=== PATIENT | male | born 1985 | race Caucasian/White ===

== ENCOUNTER 2020-04-24 07:54 | Outpatient (CLI) | payer OTHER, SELFPAY | END 2020-04-24 07:55 | disposition home or self-care (01) | LOC: ANHCOVIDVC 07:54 | PROVIDERS: PCP Family Medicine | DX: Z23 Encounter for immunization (principal) | CPT/HCPCS: 0001A; 91300 ==

== ENCOUNTER 2020-05-15 08:04 | Outpatient (CLI) | payer OTHER, SELFPAY | END 2020-05-15 08:05 | disposition home or self-care (01) | PROVIDERS: PCP Family Medicine | DX: Z23 Encounter for immunization (principal) | CPT/HCPCS: 0002A; 91300 ==

== ENCOUNTER 2020-05-16 22:39 | Emergency (ER) | payer OTHER, SELFPAY ==
--- NOTE | ~2020-05-16 | XR_ITS ---
EXAMINATION: XR chest 2V EXAM DATE: 05/16/2020 23:40 INDICATION: Chest pain and vomiting. TECHNIQUE: Frontal and lateral projections of the chest obtained and reviewed. Comparison is made to prior examination from 11/01/2017. FINDINGS: The lungs are clear. There are no pleural effusions. The cardiomediastinal silhouette is within normal limits. There is no pneumothorax suspected. The bones and soft tissues are unremarkab le. IMPRESSION: Normal chest x-ray exam. Reviewed, dictated and finalized at location A. IMPRESSION: Normal chest x-ray exam.
--- NOTE | ~2020-05-16 | CT_ITS ---
EXAMINATION: CT soft tissue neck w con EXAM DATE: 05/17/2020 01:34 INDICATION: Feels like something stuck in throat. TECHNIQUE: Spiral CT of the neck was performed following intravenous injection of 75 mL Omnipaque 350 . Axial, coronal and sagittal images were reviewed. The dose-length product (DLP) for this examinat ion was 615.02 mGy-cm. The exposure was tailored according to patient size (auto mA exposure control ), and iterative reconstruction (ASIR) was used as additional dose reduction technique. There is no prior study for comparison. FINDINGS: No radiopaque foreign bodies identified. The thyroid gland is unremarkable. The submand ibular and parotid glands are symmetric. There is no cervical lymphadenopathy. There are no masses identified. The superior mediastinum is unremarkable. The airway is unremarkable. Parapharyng eal and pre-glottic fat planes are preserved. The opacified vasculature is patent. Small amount of residual thymic tissue. The orbits are unremarkable. There is mild bilateral ethmoid and maxillary sinus mucoperiosteal thickening. No sinus air-fluid levels. The mastoid air cells are well aerated. Lung apices are clear to the pete. Unremarkable cervical spine. IMPRESSION: Mild mucoperiosteal thickening ethmoid and maxillary sinuses. Otherwise unremarkable exam . Reviewed, dictated and finalized at location A. IMPRESSION: Mild mucoperiosteal thickening ethmoid and maxillary sinuses. Other leblanc unremarkable exam.
[2020-05-16 22:41] VITALS: BP 133/107; PULSE 91; RESP 16; TEMP 36.1; O2SAT 97
--- NOTE | 2020-05-16 22:54 | ED.GENADULT ---
HPI - General Adult General Chief complaint: Nausea/Vomiting/Diarrhea Stated complaint: N/V SOMETHING STCK IN THROAT Time Seen by Provider: 05/16/20 22:51 Source: RN notes reviewed History of Present Illness HPI narrative: Patient presents to emergency department from home for nausea vomiting. Patient states he has been having nausea vomiting since waking up this morning. States that this evening he had been feeling little better and ate some general Karthik chicken he states he was initially will swallow it but then vomited up shortly afterwards since that time is had pain in his throat he states it hurts to swallow he denies any fevers or chills shortness of breath or any other symptoms he denies any abdominal pain but notes continued nausea. Patient states he is able to swallow it is just painful to swallow Related Data Allergies Allergy/AdvReac Type Severity Reaction Status Date / Time No Known Allergies Allergy Verified 05/16/20 22:47 Review of Systems Review of Systems: Narrative: Gen.: Denies fevers or chills ENT: Denies congestion Respiratory: Denies shortness of breath or cough CV: Denies chest pain or palpitations GI: See HPI denies burning, urgency, frequency or hematuria Musculoskeletal: Denies back pain or muscle pain Neuro: Denies numbness, tingling, weakness or focal weakness Skin: Denies rash Except as documented, all other systems reviewed and negative [facility] Past Medical History Medical History Anxiety Diarrhea Surgical History Surgical History History of wisdom tooth extraction Social History Social History Smoking status: Current every day smoker Second hand tobacco smoke exposure: Yes Alcohol intake: current Exam Narrative: Exam Narrative: APPEARANCE: No acute distress, nontoxic, resting in bed EYES: EOMI HEENT: Normocephalic, atraumatic, OMM airway patent, no erythema or exudate posterior pharynx, tolerating own secretions RESPIRATORY: No respiratory distress Clear to auscultation bilaterally with no rhonchi wheezing or rales. CARDIOVASCULAR: Regular rate and rhythm without murmurs rubs or gallops. ABDOMINAL: Soft, nontender, nondistended, no rebound or guarding MUSCULOSKELETAl: Moves all extremities. No clubbing, cyanosis or edema. NEURO: Awake and alert. Following commands, speech normal, no focal deficits SKIN:: Warm, dry. No rashes lesions or abrasions PSYCHIATRIC: Normal affect/mood, Course Course Emergency Course: Following lab results evaluate I reevaluated the patient no abdominal tenderness specifically no tenderness in the right upper quadrant Patient able to eat and drink in ED with no difficulty ready for discharge Discussed with Dr. Story presentation work-up discussed elevated LFTs will follow as an outpatient Discussed with patient results of workup and diagnosis. Discussed need for follow-up with primary care, proper use of medication, and reasons to return to the emergency department. Patient understands and agrees to current treatment plan Vital Signs Vital signs: Vital Signs Temperature 97.0 F L 05/16/20 22:41 Pulse Rate 91 05/16/20 22:41 Respiratory Rate 16 05/16/20 22:41 Blood Pressure 133/107 H 05/16/20 22:41 Pulse Oximetry 97 05/16/20 22:41 Temperature 97.9 F 05/17/20 00:42 Pulse Rate 87 05/17/20 03:00 Respiratory Rate 16 05/17/20 03:00 Blood Pressure 143/77 H 05/17/20 03:00 Pulse Oximetry 98 05/17/20 03:00 Medical Decision Making Vital Signs Vital Signs: Vital Signs Temperature 97.0 F L 05/16/20 22:41 Pulse Rate 91 05/16/20 22:41 Respiratory Rate 16 05/16/20 22:41 Blood Pressure 133/107 H 05/16/20 22:41 Pulse Oximetry 97 05/16/20 22:41 Temperature 97.9 F 05/17/20 00:42 Pulse Rate 87 05/17/20 03:00 Respiratory Rate 16
[2020-05-16] MEDS: SODIUM CHLORIDE 0.9% IV 1,000 ML 999 ML IV CONT (23:18)
[2020-05-16] MEDS: ONDANSETRON INJ 4 MG/2 ML VIAL IV PUSH (23:19)
[2020-05-16] MEDS: PANTOPRAZOLE SODIUM IV 40 MG VIAL IV PUSH (23:20)
[2020-05-16 23:37] LABS: Basophils Absolute Auto 0.1 K/mm3 (0.0-0.1); Basophils Percent Auto 0.6 % (0.2-1.2); Eosinophils Absolute Auto 0.2 K/mm3 (0-0.3); Eosinophils Percent Auto 2.9 % (0-4.4); Hematocrit 50.5 % (42.0-52.0); Hemoglobin 18.3 g/dL (14.0-18.0); Immature Granulocyte Absolute 0.04 K/mm3 (0.00-0.031); Immature Granulocyte Percent A 0.5 % (0-0.5); Lymphocytes Absolute Auto 1.39 K/mm3 (0.9-3.2); Lymphocytes Percent Auto 16.6 % (18.3-44.2); Mean Corpuscular HGB Conc 36.2 g/dl (32-36); Mean Corpuscular Hemoglobin 33.8 pg (26-34); Mean Corpuscular Volume 93.3 fl (80-100); Mean Platelet Volume 10.7 fl (7.4-10.4); Monocytes Absolute Auto 0.9 K/mm3 (0.1-0.6); Monocytes Percent Auto 10.5 % (2.6-8.5); Neutrophils Absolute Auto 5.8 K/mm3 (1.3-6.7); Neutrophils Percent Auto 68.9 % (45.5-73.1); Platelet Count Result 232 k/mm3 (150-375); Red Blood Count 5.41 M/mm3 (4.6-6.20); Red Cell Distribution Width 11.4 % (11.5-14.5); White Blood Count 8.4 K/mm3 (4.5-10.0)
[2020-05-16 23:47] LABS: Add Urine Microscopic? YES; Appearance Urine Cloudy (Clear); Bacteria Urine Trace /hpf; Bilirubin Urine Negative (Negative); Blood Urine Negative (Negative); Color Urine Amber (Yellow); Glucose Urine UA Negative (Negative); Ketones Urine Trace mg/dL (Negative); Leukocyte Esterase Ur Negative LEU/UL (Negative); Mucus Urine Heavy /lpf; Nitrate Urine Negative (Negative); Protein Urine 2+ mg/dL (Negative); RBC Urine 0-2 /hpf (0-2); Specific Grav Ur 1.029 (1.001-1.035); Squamous Epithelial Cell Urine Rare /hpf (Few); WBC Urine 0-3 /hpf
[2020-05-16 23:58] LABS: Alanine Aminotransferase 124 U/L (4-50); Albumin Level 4.7 g/dL (3.5-5.1); Alkaline Phosphatase 96 U/L (38-126); Anion Gap 9 mmol/L (8-16); Aspartate Amino Transferase 131 U/L (17-59); Bilirubin,Total 1.2 mg/dL (0.2-1.3); Blood Urea Nitrogen 13 mg/dL (9-20); Calcium 9.3 mg/dL (8.4-10.2); Carbon Dioxide 35 mmol/L (22-30); Chloride 95 mmol/L (98-107); Estimated CRCL calculation 129 ml/min; Estimated Glomerular Filt Rate > 60; Glucose 133 mg/dL (75-110); Lipase 134 U/L (23-300); Potassium 3.6 mmol/L (3.4-5.0); Sodium 139 mmol/L (137-145)
[2020-05-17 00:42] VITALS: BP 132/71; PULSE 97; RESP 20; TEMP 36.6; O2SAT 97
[2020-05-17] MEDS: ACETAMINOPHEN 500 MG TABLET 1000 MG PO (02:57)
[2020-05-17 03:00] VITALS: BP 143/77; PULSE 87; RESP 16; O2SAT 98
[2020-05-17 03:51] VITALS: BP 110/65; PULSE 90; RESP 16; O2SAT 97
== END 2020-05-17 03:52 | disposition home or self-care (01) ==
PROVIDERS: Emergency Provider Emergency Medicine; PCP Family Medicine
DX: R11.2 Nausea with vomiting, unspecified (principal); R13.10 Dysphagia, unspecified; F17.200 Nicotine dependence, unspecified, uncomplicated
CPT/HCPCS: 36415; 70491; 71046; 80053; 81001; 83690; 85025; 96361; 96374; 96375; 99284; A9270; C9113; J2405; J7030; Q9967

== ENCOUNTER 2020-05-19 11:05 | Outpatient (CLI) | payer OTHER, SELFPAY ==
[2020-05-19 12:07] LABS: Hematocrit 47.2 % (42.0-52.0); Hemoglobin 16.4 g/dL (14.0-18.0); Mean Corpuscular HGB Conc 34.7 g/dl (32-36); Mean Corpuscular Hemoglobin 33.3 pg (26-34); Mean Corpuscular Volume 95.7 fl (80-100); Mean Platelet Volume 10.6 fl (7.4-10.4); Platelet Count Result 196 k/mm3 (150-375); Red Blood Count 4.93 M/mm3 (4.6-6.20); Red Cell Distribution Width 11.6 % (11.5-14.5); White Blood Count 5.4 K/mm3 (4.5-10.0)
[2020-05-19 12:22] LABS: Alanine Aminotransferase 143 U/L (4-50); Albumin Level 4.2 g/dL (3.5-5.1); Alkaline Phosphatase 73 U/L (38-126); Anion Gap 5 mmol/L (8-16); Aspartate Amino Transferase 142 U/L (17-59); Bilirubin,Total 0.7 mg/dL (0.2-1.3); Blood Urea Nitrogen 11 mg/dL (9-20); Calcium 8.6 mg/dL (8.4-10.2); Carbon Dioxide 33 mmol/L (22-30); Chloride 102 mmol/L (98-107); Cholesterol 130 mg/dL (0-200); Estimated Glomerular Filt Rate > 60; Glucose 81 mg/dL (75-110); HDL Direct 73 mg/dL; Potassium 4.7 mmol/L (3.4-5.0); Sodium 140 mmol/L (137-145); Triglycerides 50 mg/dL (<150)
[2020-05-19 12:32] LABS: Erythrocyte Sedimentation Rate 4 mm/hr (0-20)
[2020-05-19 12:33] LABS: LDL Cholesterol Direct 51 mg/dL
[2020-05-19 13:39] LABS: Free T4 Free Thyroxine Reflex 0.67 ng/dL (0.78-2.19)
== END 2020-05-19 11:06 | disposition home or self-care (01) ==
PROVIDERS: PCP Family Medicine; Visit Provider Nurse Practitioner Family
DX: R19.7 Diarrhea, unspecified (principal); F41.9 Anxiety disorder, unspecified; Z13.220 Encounter for screening for lipoid disorders; Z00.00 Encounter for general adult medical examination without abnormal findings
CPT/HCPCS: 36415; 80053; 80061; 84439; 84443; 85027; 85652; 86140

== ENCOUNTER 2020-05-20 14:13 | Outpatient (CLI) | payer OTHER, SELFPAY | END 2020-05-20 14:14 | disposition home or self-care (01) | PROVIDERS: PCP Family Medicine; Visit Provider Nurse Practitioner Family | DX: R19.7 Diarrhea, unspecified (principal) | CPT/HCPCS: 87045; 87046; 87177; 87209; 87427 ==

== ENCOUNTER → 2020-06-09 01:46 | Outpatient (CLI) | payer OTHER, SELFPAY ==
[2020-06-09 19:24] LABS: SARS-CoV-2 RNA PCR Negative
== END ==
PROVIDERS: PCP Family Medicine; Visit Provider Internal Medicine Gastroenterology
DX: Z01.812 Encounter for preprocedural laboratory examination (principal); Z20.822 Contact with and (suspected) exposure to COVID-19
CPT/HCPCS: C9803; U0003; U0005

== ENCOUNTER 2020-06-12 00:49 | Day surgery (SDC) | payer OTHER, SELFPAY ==
[2020-06-02 13:54] VITALS: BMI 24.3
[2020-06-12 10:05] VITALS: BP 125/80; PULSE 87; RESP 18; TEMP 36.3; O2SAT 98; BMI 24.3
[2020-06-12] MEDS: LACTATED RINGERS 1,000 ML 150 ML IV CONT (10:16)
--- NOTE | 2020-06-12 10:16 | WPDANESEPPF ---
Anes - Initial Pre Proc Eval Procedure: Operation Date: 06/12/20 11:15 Proposed Procedures p Esophagogastroduodenoscopy & Colonoscopy - Macario Nagy MD Date/Time: 06/12/20 10:16 Surgeon: Macario Nagy MD Pre Op Diagnosis: heartburn, diarrhea, melena Patient Data Age: 34 Gender: M Height: 6 ft 5 in Weight: 93.3 kg Last Vital Signs Temp 36.3 C L 06/12/20 10:05 Pulse 87 06/12/20 10:05 Resp 18 06/12/20 10:05 BP 125/80 06/12/20 10:05 Pulse Ox 98 06/12/20 10:05 Allergies Allergy/AdvReac Type Severity Reaction Status Date / Time No Known Allergies Allergy Verified 06/12/20 10:03 Home Medications Medication Instructions Recorded Confirmed Type alprazolam 0.5 mg tablet 0.5 mg PO BID PRN #30 tablet 05/25/20 06/12/20 Rx pantoprazole [Protonix] 40 mg PO DAILY PRN 06/02/20 06/12/20 History ondansetron 4 mg PO TID PRN 06/12/20 06/12/20 History Patient hx anesthesia problems: none Family hx anesthesia problems: none PMFSH Past Medical History Medical History Anxiety Diarrhea Surgical History Surgical History History of wisdom tooth extraction Social History Social History Smoking status: Current every day smoker Tobacco type: cigarettes Second hand tobacco smoke exposure: Yes Alcohol intake: current Drinks per week: 15 Substance use: current Substance use type: marijuana Other substance usage details: occassionally Living arrangements: with family Gender identity (if verbalized by the patient): Male Spiritual care concerns: No Anes - Eval Final PreProcedure Day of Procedure 06/12/20 10:16 Patient weight: normal Heart: regular rate and rhythm Lungs: clear to auscultation Airway: Mallampati scale class II Neurological: alert and oriented Last oral intake: >/= 8 hours ASA classification: III Emergent: no Anesthetic plan: proceed Anesthesia type and monitoring: general GIVS and standard monitoring Informed Consent: The patient's anesthetic plan and its attendant risks and benefits were discussed with the patient/family/POA. Questions were solicited and answers provided to the satisfaction of the patient/family/POA.
--- NOTE | 2020-06-12 10:44 | PM.HPGS ---
History of Present Illness History of Present Illness Consent: Risks, benefits, and alternatives have been discussed and questions answered. Patient agrees to proceed with procedure. Chief complaint: heartburn, diarrhea, melena Narrative: Trev Avila is a 34 year old male with gerd using tums as needed also diarrhea for months (even before he got COVID), stool samples normal, normal cbc but noted elevated transaminases (he drinks etoh daily) Review of Systems Constitutional: Constitutional: Denies headache(s) and Denies weakness Eyes: Eyes: Denies blurry vision ENT: Reports Normal hearing present, Denies headache(s) and Denies neck pain Cardiovascular: Cardiovascular: Denies chest pain and Denies dyspnea Respiratory: Respiratory: Denies dyspnea Gastrointestinal: Gastrointestinal: Reports no additional gastrointestinal complaints Genitourinary: Genitourinary: Denies dysuria Musculoskeletal: Musculoskeletal: Denies neck pain Integumentary/Breasts: Skin/Breast: Denies dry skin Neurologic: Reports Normal hearing present, Denies headache(s) and Denies weakness Psychiatric: Psychiatric: Denies anxiety Endocrine: Endocrine: Denies change in body appearance Hematologic/Lymphatic: Hematologic/Lymphatic: Denies easy bleeding Allergic/Immunologic: Allergic/Immunologic: Denies urticaria PMFSH Past Medical History Medical History (Updated 06/12/20 @ 10:50 by Macario Nagy MD) Anxiety Diarrhea Elevated liver enzymes GERD (gastroesophageal reflux disease) Surgical History Surgical History History of wisdom tooth extraction Social History Social History Smoking status: Current every day smoker Tobacco type: cigarettes Second hand tobacco smoke exposure: Yes Alcohol intake: current Drinks per week: 15 Substance use: current Substance use type: marijuana Other substance usage details: occassionally Living arrangements: with family Gender identity (if verbalized by the patient): Male Spiritual care concerns: No Meds Home Medications and Allergies Home Medications Medication Instructions Recorded Confirmed Type alprazolam 0.5 mg tablet 0.5 mg PO BID PRN #30 tablet 05/25/20 06/12/20 Rx pantoprazole [Protonix] 40 mg PO DAILY PRN 06/02/20 06/12/20 History ondansetron 4 mg PO TID PRN 06/12/20 06/12/20 History Allergies Allergy/AdvReac Type Severity Reaction Status Date / Time No Known Allergies Allergy Verified 06/12/20 10:03 Vital Signs Vital Signs - 24 hr 06/12/20 10:05 Temperature 97.4 F L Pulse Rate 87 Respiratory Rate 18 Blood Pressure 125/80 Pulse Oximetry 98 Exam Const: General: comfortable and no acute distress HENMT: General nose exam: Normal nares present Eyes: General: appearance normal, both eyes and all related structures Neck: Neck: no JVD Resp: Auscultation: clear to auscultation bilaterally Cardio: Rate: regular rate Rhythm: regular rhythm GI: Inspection: non-distended GI Palp: Yes Soft to palpation Skin: General skin exam: normal color Neuro: General: gait normal Speech: normal speech Extrem: General: normal to inspection Psych: Mental Status: mental status grossly normal Assessment and Plan Assessment and plan (1) Diarrhea: Code(s): R19.7 - Diarrhea, unspecified Status: Acute Assessment and Plan: colonoscopy with random bx (2) GERD (gastroesophageal reflux disease): Code(s): K21.9 - Gastro-esophageal reflux disease without esophagitis Status: Acute Assessment and Plan: egd with bx, assess also for celiac, h pylori (3) Elevated liver enzymes: Code(s): R74.8 - Abnormal levels of other serum enzymes Status: Acute Assessment and Plan: probably from alcohol use, will follow in office
[2020-06-12] MEDS: BENZOCAINE (*SP) 60 ML SPRAY CAN (HURRICAINE) 1 SPRAY MUCOUS MEM (10:49)
[2020-06-12 11:16] VITALS: BP 114/53; PULSE 89; RESP 16; O2SAT 99
[2020-06-12 11:26] VITALS: BP 118/82; PULSE 79; RESP 16; O2SAT 99
[2020-06-12 11:36] VITALS: BP 106/59; PULSE 83; RESP 17; O2SAT 99
== END 2020-06-12 11:55 | disposition home or self-care (01) ==
PROVIDERS: PCP Family Medicine; Visit Provider Internal Medicine Gastroenterology
PROC: 0DJ08ZZ Inspection of Upper Intestinal Tract, Via Natural or Artificial Opening Endoscopic (ICD-10-PCS; CPT 43235; principal; 2020-06-12 11:15)
DX: R19.7 Diarrhea, unspecified (principal); D12.2 Benign neoplasm of ascending colon; K63.5 Polyp of colon; K64.8 Other hemorrhoids; K21.00 Gastro-esophageal reflux disease with esophagitis, without bleeding; K44.9 Diaphragmatic hernia without obstruction or gangrene; K29.70 Gastritis, unspecified, without bleeding; K29.80 Duodenitis without bleeding; F41.9 Anxiety disorder, unspecified; F17.210 Nicotine dependence, cigarettes, uncomplicated; F12.90 Cannabis use, unspecified, uncomplicated
CPT/HCPCS: 45380; 43239; 88305; C9803; J2704; J7120; U0003; U0005

== ENCOUNTER 2020-07-22 08:42 | Outpatient (CLI) | payer OTHER, SELFPAY ==
--- NOTE | ~2020-07-22 | US_ITS ---
US right upper quadrant INDICATION: Abnormal liver function tests PROCEDURE: Realtime right upper abdominal ultrasound. COMPARISON: No prior studies for comparison. FINDINGS: The pancreas is normal without focal mass or pancreatic ductal dilation. Liver echotexture is increased, consistent with fatty infiltration. There is normal directional flow in the portal ve in. The gallbladder is normal without stones, gallbladder wall thickening or pericholecystic fluid. Comm on bile duct measures 4 mm. No sonographic Alvarado's sign. IMPRESSION: 1: Hepatic steatosis Reviewed, dictated and finalized at location A. IMPRESSION: 1: Hepatic steatosis
== END 2020-07-22 08:43 | disposition home or self-care (01) ==
PROVIDERS: PCP Family Medicine; Visit Provider Internal Medicine Gastroenterology
DX: R74.8 Abnormal levels of other serum enzymes (principal); K76.0 Fatty (change of) liver, not elsewhere classified
CPT/HCPCS: 76705

== ENCOUNTER 2021-06-15 16:09 | Outpatient (CLI) | payer OTHER, SELFPAY ==
[2021-06-15 16:32] LABS: Basophils Absolute Auto 0.1 K/mm3 (0.0-0.1); Basophils Percent Auto 1.2 % (0.2-1.2); Eosinophils Absolute Auto 0.5 K/mm3 (0-0.3); Hematocrit 47.1 % (42.0-52.0); Hemoglobin 16.8 g/dL (14.0-18.0); Immature Granulocyte Absolute 0.03 K/mm3 (0.00-0.031); Immature Granulocyte Percent A 0.4 % (0-0.5); Lymphocytes Absolute Auto 1.96 K/mm3 (0.9-3.2); Lymphocytes Percent Auto 25.1 % (18.3-44.2); Mean Corpuscular HGB Conc 35.7 g/dl (32-36); Mean Corpuscular Hemoglobin 33.7 pg (26-34); Mean Corpuscular Volume 94.6 fl (80-100); Mean Platelet Volume 11.2 fl (7.4-10.4); Monocytes Absolute Auto 0.6 K/mm3 (0.1-0.6); Monocytes Percent Auto 8.2 % (2.6-8.5); Neutrophils Absolute Auto 4.6 K/mm3 (1.3-6.7); Neutrophils Percent Auto 59.1 % (45.5-73.1); Platelet Count Result 205 k/mm3 (150-375); Red Blood Count 4.98 M/mm3 (4.6-6.20); Red Cell Distribution Width 11.2 % (11.5-14.5); White Blood Count 7.8 K/mm3 (4.5-10.0)
[2021-06-15 16:45] LABS: Alanine Aminotransferase 30 U/L (6-50); Albumin Level 4.8 g/dL (3.5-5.1); Alkaline Phosphatase 74 U/L (38-126); Anion Gap 9 mmol/L (8-16); Aspartate Amino Transferase 34 U/L (17-59); Bilirubin,Total 0.8 mg/dL (0.2-1.3); Blood Urea Nitrogen 10 mg/dL (9-20); Carbon Dioxide 28 mmol/L (22-30); Chloride 100 mmol/L (98-107); Estimated Glomerular Filt Rate > 60; Glucose 94 mg/dL (65-110); Potassium 4.2 mmol/L (3.4-5.0); Sodium 137 mmol/L (137-145)
[2021-06-15 16:48] LABS: Cholesterol 165 mg/dL (0-200); HDL Direct 58 mg/dL; Triglycerides 99 mg/dL (<150)
[2021-06-15 16:59] LABS: LDL Cholesterol Direct 81 mg/dL
[2021-06-15 17:43] LABS: Iron 171 ug/dL (49-181)
[2021-06-15 17:53] LABS: Percent Iron Saturation 59 % (20-50)
[2021-06-15 18:02] LABS: Vitamin D 25 Hydroxy 73.1 ng/mL
[2021-06-15 18:16] LABS: Hepatitis B Surface Antigen Negative (Negative)
[2021-06-15 18:21] LABS: HAV RESULT Negative (Negative); Hepatitis B Core IgM Result Negative (Negative)
[2021-06-15 18:33] LABS: Hepatitis C Virus Antibody Negative (Negative)
[2021-06-15 20:55] LABS: Free T4 Free Thyroxine Reflex 0.73 ng/dL (0.78-2.19)
[2021-06-18 11:59] LABS: Ceruloplasmin 24 mg/dL (18-36)
[2021-06-18 19:51] LABS: Mitochondrial (M2) Ab (IgG) <=20.0 U (<=20.0)
== END 2021-06-15 16:10 | disposition home or self-care (01) ==
LOC: ANHLAB 16:11
PROVIDERS: PCP Family Medicine; Referring Provider Internal Medicine Gastroenterology; Visit Provider Family Medicine
DX: R74.8 Abnormal levels of other serum enzymes (principal); R79.89 Other specified abnormal findings of blood chemistry; E55.9 Vitamin D deficiency, unspecified; Z00.00 Encounter for general adult medical examination without abnormal findings; Z13.220 Encounter for screening for lipoid disorders
CPT/HCPCS: 36415; 80053; 80061; 80074; 82104; 82306; 82390; 82728; 83520; 83540; 83550; 84439; 84443; 85025; 86038

== ENCOUNTER 2022-01-28 12:24 | Outpatient (CLI) | payer OTHER, SELFPAY ==
[2022-01-28 19:40] LABS: Free T4 Free Thyroxine Reflex 1.23 ng/dL (0.78-2.19)
[2022-01-28 21:03] LABS: Total Triiodothyronine (T3) 1.24 NG/ML (0.97-1.69)
== END 2022-01-28 12:25 | disposition home or self-care (01) ==
PROVIDERS: PCP Family Medicine; Visit Provider Family Medicine
DX: E03.9 Hypothyroidism, unspecified (principal)
CPT/HCPCS: 36415; 84439; 84443; 84480

== ENCOUNTER 2022-03-28 10:14 | Outpatient (CLI) | payer OTHER, SELFPAY ==
[2022-03-28 12:42] LABS: Free T4 Free Thyroxine Reflex 1.41 ng/dL (0.78-2.19)
[2022-03-28 14:01] LABS: Total Triiodothyronine (T3) 1.31 NG/ML (0.97-1.69)
== END 2022-03-28 10:15 | disposition home or self-care (01) ==
PROVIDERS: PCP Family Medicine; Visit Provider Family Medicine
DX: E03.9 Hypothyroidism, unspecified (principal)
CPT/HCPCS: 36415; 84439; 84443; 84480

== ENCOUNTER 2023-01-15 10:46 | Emergency (ER) | payer BC, SELFPAY ==
--- NOTE | 2023-01-15 11:10 | ED.GENADULT ---
HPI - General Adult General Chief complaint: Upper Respiratory Infection Stated complaint: sorethroat,lt ear pain,cough Time Seen by Provider: 01/15/23 11:10 Source: patient Mode of arrival: ambulatory Limitations: no limitations History of Present Illness HPI narrative: 37-year-old male patient presents to [facility] with complaints of left ear pain, sore throat, runny nose, congestion and cough. Patient states he has had his symptoms for about 5-6 days now. Denies any fevers or body aches or chills at this time. Patient states his biggest complaint is that his ear feels like he is underwater and has a lot of pain. Patient states he has been taking [id number] cold and flu medication for his symptoms. Related Data Allergies Allergy/AdvReac Type Severity Reaction Status Date / Time No Known Allergies Allergy Verified 03/28/22 14:26 Review of Systems Review of Systems: CONSTITUTIONAL: Denies fever, chills, or sweats. EYES: Denies visual changes, redness, or discharge. ENT: Positive rhinorrhea, congestion, sore throat, positive left otalgia. CARDIOVASCULAR: Denies chest pain, palpitations, or edema. RESPIRATORY: positive cough denies dyspnea. GASTROINTESTINAL: Denies abdominal pain, nausea, vomiting, or diarrhea. GENITOURINARY: Denies dysuria or hematuria. SKIN: Denies rash or itching. MUSCULOSKELETAL: Denies back pain, joint pain, or myalgia. NEUROLOGIC: positive headache, denies numbness, or weakness. PSYCHIATRIC: Denies anxiety or depression. 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 Substance use: current Substance use type: marijuana Other substance usage details: occassionally Lack of Transportation: No Lack of Food: Never True Current Housing: I Have Housing Concerned About Future Housing: No Difficulty Paying Gas/Electric Bills: No Difficulty Paying for Meds: No Currently Unemployed: No Education: Bachelor's Degree Difficulty w/ Childcare or Family Care: No Living arrangements: with family Occupation/Education: occupation Gender identity (if verbalized by the patient): Male Spiritual care concerns: No Agree to blood products: Yes Comments At the time of my signature I agree with nursing past medical history, surgical, social, and family history. There is no relevant family history pertinent to the presenting complaint. Exam Narrative: GENERAL: Well-appearing, well-nourished, and in no acute distress. HEAD: Normocephalic, atraumatic. EYES: PERRLA and EOMI. ENT: Nares with erythema edema noted bilaterally, clear rhinorrhea or epistaxis. Mucous membranes moist. posterior pharynx with no erythema, tonsillar enlargement, exudates or lesions present. The left TM does have erythema and injection present. No foreign bodies noted to the canal. NECK: Supple. No lymphadenopathy CHEST: Clear to auscultation. No respiratory distress. HEART: Regular rate and rhythm. No murmur heard. Normal peripheral pulses. ABDOMEN: Soft, nontender, nondistended, normal active bowel sounds. EXTREMITIES: Normal range of motion. No edema. SKIN: Warm, dry, no rash. NEURO: No focal deficits. Alert and oriented x3. Course Course Level of Care: Express Care Visit Vital Signs Vital signs: Vital Signs Temperature 36.7 C 01/15/23 11:19 Pulse Rate 106 H 01/15/23 11:19 Respirato
[2023-01-15 11:19] VITALS: BP 149/89; PULSE 106; RESP 18; TEMP 36.7; O2SAT 97
== END 2023-01-15 11:37 | disposition home or self-care (01) ==
PROVIDERS: Emergency Provider Nurse Practitioner Family; PCP Family Medicine
DX: H66.92 Otitis media, unspecified, left ear (principal); Z20.822 Contact with and (suspected) exposure to COVID-19; F17.210 Nicotine dependence, cigarettes, uncomplicated; K21.9 Gastro-esophageal reflux disease without esophagitis; E03.9 Hypothyroidism, unspecified; K76.0 Fatty (change of) liver, not elsewhere classified
CPT/HCPCS: 87081; 87426; 87804; 87880; 99213; C9803; G0463

== ENCOUNTER 2024-11-02 18:29 | Emergency (ER) | payer BC, SELFPAY ==
[2024-11-02] VITALS (31 sets, daily range): BP systolic 130–156; BP diastolic 68–98; PULSE 108–125; RESP 10–27; TEMP 36.6; O2SAT 92–98
--- NOTE | ~2024-11-02 | XR_ITS ---
Examination: XR chest 1V portable Clinical History: tachycardia Comparison: 05/16/2020 Technique: Portable AP Findings: Heart size normal. Lungs clear. No acute bony abnormality. IMPRESSION: 1. No acute cardiopulmonary findings given portable technique. Reviewed, dictated and finalized at location R.
--- NOTE | 2024-11-02 18:52 | ECG_ITS ---
Test Date: 2024-11-02 20:22:35 Measurements Intervals Monitor Rate: 110 P: 0 NH: 0 QRS: 74 QRSD: 94 T: 63 QT: 338 QTc: 459 Interpretive Statements SINUS TACHYCARDIA Electronically Signed On 11-03-2024 20:47:44 CDT by Benson Abdi D.O
--- NOTE | 2024-11-02 19:03 | PC.NURSE ---
Pt moved from room 15 to H2 d/t provider request. Pt was tachycardic upon arrival and provider wanted pt to be on monitoring.
--- NOTE | 2024-11-02 19:06 | ED.ALCOHOL ---
HPI - Alcohol General Chief Complaint: Anxiety Stated Complaint: Behavioral Health Concern w/ ETOH History of Present Illness HPI narrative: Patient is a 39-year-old male who presents to the ER with acute alcohol intoxication. He reports he has been drinking for the last 40 hours, but then reports he has not drank in the last 30 hours. Patient reports ?I need help. He reports he has never gone through withdrawals before. Patient denies any other medical history relevant to this ER visit, although his chart indicates he is on levothyroxine. He denies any other substance use. Patient denies any pain at the time of examination. He denies chest pain, back pain, urinary symptoms, or recent fevers. Related Data Allergies Allergy/AdvReac Type Severity Reaction Status Date / Time No Known Allergies Allergy Verified 06/26/24 12:55 Review of Systems Review of Systems: All systems reviewed & are unremarkable except as noted in HPI and below PMFSH Past Medical History Medical History Hypothyroidism (acquired) Hepatic steatosis Elevated liver enzymes GERD (gastroesophageal reflux disease) Diarrhea Anxiety Surgical History Surgical History History of wisdom tooth extraction Social History Social History Smoking status: Current some day smoker Tobacco type: cigarettes Second hand tobacco smoke exposure: Yes Alcohol intake: current Drinks per week: 15 Alcohol use details: As of today 13 days sober Substance use: current Substance use type: unknown Other substance usage details: occassionally Lack of Transportation: No Lack of Food: Never True Current Housing: I Have Housing Concerned About Future Housing: No Difficulty Paying Gas/Electric Bills: No Difficulty Paying for Meds: No Currently Unemployed: No Education: Bachelor's Degree Difficulty w/ Childcare or Family Care: No Living arrangements: with family Occupation/Education: occupation Gender identity (if verbalized by the patient): Male Spiritual care concerns: No Agree to blood products: Yes Exam Narrative: GENERAL: Ill appearing, well-nourished, non-toxic, in no acute distress. HEAD: Normocephalic, atraumatic. NECK: Supple. No adenopathy, no masses. RESPIRATORY: Airway patent, respirations nonlabored. Clear to auscultation bilaterally, no rales, rhonchi, wheezing. CARDIOVASCULAR: Tachycardia without murmurs, rubs, or gallops. Peripheral pulses 2+ and equal bilaterally. ABDOMINAL: Soft, nontender, nondistended, no hepatosplenomegaly. Normoactive BS. MUSCULOSKELETAL: Moves all extremities. Strength/ROM intact without gross deformities. SKIN: Warm, dry, pallor. No rashes. NEURO: A&O X3. Speech clear. Cranial nerves II-XII intact. PSYCHIATRIC: Tearful Course Vital Signs Vital signs: Vital Signs Temperature 36.6 C 11/02/24 19:02 Pulse Rate 125 H 11/02/24 19:02 Respiratory Rate 18 11/02/24 19:02 Blood Pressure 153/94 H 11/02/24 19:02 Pulse Oximetry 98 11/02/24 19:02 Oxygen Delivery Room Air 11/02/24 19:02 Temperature 36.6 C 11/02/24 19:02 Pulse Rate 100 11/03/24 01:30 Respiratory Rate 16 11/03/24 01:15 Blood Pressure 127/83 11/03/24 01:17 Pulse Oximetry 92 11/03/24 00:46 Oxygen Delivery Room Air 11/02/24 19:02 MDM - Alcohol MDM Narrative Medical decision making narrative: Patient is a 39-year-old male who presents to the ER with acute alcohol intoxication. He reports he has been drinking for the last 40 hours, but then reports he has not drank in the last 30 hours. Patient reports ?I need help. He reports he has never gone through withdrawals before. Patient denies any other medical history relevant to this ER visit, although his chart indicates he is on levothyroxine. He denies any other substance use. Patient denies any pain at the time of examination. He denies chest pain, shortness of breath, back pain, urinary symptoms, or recent fevers. Labs Ordered: CBC, CMP, Tylenol level, salicylate level, TSH, COVID/flu/RSV, vitamin B12, folic acid, UA, UDS, ethanol Imaging Ordered: Chest x-ray (pt declined) Medications Ordered: 1 L normal saline IV bolus x3, Zofran 4 mg IV, thiamine IV, folic acid IV Results: Patient's initial alcohol level was 455. His CBC indicates white blood cell count of 11.4. His chemistry indicates an anion gap of 18, glucose of 113, AST of 85, ALT of 56, and total protein of 8.5. His vitamin B12 and folic acid levels were within normal limits. Patient's TSH was 4.58. His urinalysis indicates no acute abnormalities. Patient's drug screen was negative. His influenza, RSV, and COVID swab was negative. Diagnosis: acute alcohol intoxication, dehydration Risks: CIWA-Ar for Alcohol Withdrawal from [facility] on 11/03/2024 All calculations should be rechecked by clinician prior to use RESULT SUMMARY: 6 points Patients with scores <= typically do not require medication for withdrawal. INPUTS: Nausea/vomiting ?> 2 = (More severe symptoms) Tremor ?> 2 = (More severe symptoms) Paroxysmal sweats ?> 0 = No sweat visible Anxiety ?> 1 = Mildly anxious Agitation ?> 1 = Somewhat more activity than normal activity Tactile disturbances ?> 0 = None Auditory disturbances ?> 0 = Not present Visual disturbances ?> 0 = Not present Headache/fullness in head ?> 0 = Not Present Orientation/clouding of sensorium ?> 0 = Oriented, can do serial additions CRITICAL CARE ADDENDUM: Indication: acute alcohol intoxication, tachycardia, dehydration Time type: intermittent I provided a total of 55 minutes of critical care excluding separately billable procedures. This includes time for initial bedside evaluation, reviewing old records, review of testing done while under my care, discussion w/ the family, nurses, customer experience consultant and guiding the patient?s care while in the emergency department. Approximate time distribution: 15 minutes ? Initial evaluation, d/w involved parties, attempting to gather old records. 10 minutes ? Documenting medical record 10 minutes ? Review of results (EKGs, labs, imaging) 10 minutes ? Serial repeat bedside evaluation 10 minutes ? Discussing case with multiple providers Please see main chart for details. Excludes separately billable procedures. Patient Education/Shared MDM: Results of lab work and imaging shared with patient. He continues to deny any shortness of breath or chest pain. Patient continues to remain alert and oriented x4. He reports his can come to the ER to pick him up for a ride home. Extensive discussion between MARKETING CONTENT MANAGER and patient regarding plan. He was given the option to have mental health intake come evaluate him or he can go home and find a place to go through detox on his own time. Patient is requesting a prescription for Librium but MARKETING CONTENT MANAGER declined as he is already on Xanax and MARKETING CONTENT MANAGER is unable to follow up with him as an outpatient. According to patient's chart he currently has a primary care provider who has been following him for his alcoholism. Eventually patient opted to receive a dose Zofran ODT and Ativan p.o. prior to discharge. Symptoms of withdrawal were provided to patient and he verbalizes understanding of when he should return to the ER. Patient reports has Xanax available at home if he starts to feel his anxiety increased. Patient strongly advised to maintain hydration status upon discharge and follow-up with his PCP as soon as possible. He was also advised to seek out treatment for his alcoholism. He will be discharged home with a prescription for Zofran. Pt tolerated PO challenge and was able to keep liquids down. Strict return precautions provided. Patient verbalized understanding and is in agreement with plan. Vital signs stable at time of discharge. All questions answered. Differential Diagnosis Differential diagnosis: Likely hypomagnesemia and alcohol intoxication Lab Data Attestation: I reviewed the patient's lab results. 11/02/24 19:40 11/02/24 19:40 Labs: Lab Results 11/02/24 11/02/24 Range/Units 19:40 21:54 WBC 11.4 H (4.5-10.0) K/mm3 RBC 5.39 (4.6-6.20) M/mm3 Hgb 17.6 (14.0-18.0) g/dL Hct 50.2 (42.0-52.0) % MCV 93.1 (80-100) fl MCH 32.7 (26-34) pg MCHC 35.1 (32-36) g/dl RDW 12.9 (11.5-14.5) % Plt Count 206 (150-375) k/mm3 MPV 9.9 (7.4-10.4) fl Immature Gran % (Auto) 0.4 (0-0.5) % Neut % (Auto) 70.9 (45.5-73.1) % Lymph % (Auto) 20.6 (18.3-44.2) % [place] % (Auto) 6.0 (2.6-8.5) % Eos % (Auto) 1.5 (0-4.4) % Baso % (Auto) 0.6 (0.2-1.2) % Lymph # (Auto) 2.34 (0.9-3.2) K/mm3 [place] # (Auto) 0.7 H (0.1-0.6) K/mm3 Eos # (Auto) 0.2 (0-0.3) K/mm3 Baso # (Auto) 0.1 (0.0-0.1) K/mm3 Abs Immat Gran (auto) 0.04 H (0.00-0.031) K/mm3 Absolute Neuts (auto) 8.1 H (1.3-6.7) K/mm3 Absolute Nucleated RBC 0.000 (0.0-0.012) K/mm3 Nucleated RBC % 0.0 (0.0-0.2) % Sodium 140 (137-145) mmol/L Potassium 4.2 (3.4-5.0) mmol/L Chloride 98 (98-107) mmol/L Carbon Dioxide 24 (22-30) mmol/L Anion Gap 18 H (4-12) mmol/L BUN 10 (9-20) mg/dL Creatinine 0.75 (0.7-1.3) mg/dL Estim Creat Clear Calc Not Reportable Estimated GFR > 60 (59 - ) Glucose 113 H (65-110) mg/dL POC Capillary Glucose 97 (65-105) mg/dl Calcium 8.5 (8.4-10.2) mg/dL Total Bilirubin 0.9 (0.2-1.3) mg/dL AST 85 H (17-59) U/L ALT 56 H (6-50) U/L Alkaline Phosphatase 115 (38-126) U/L Total Protein 8.5 H (6.3-8.2) g/dL Albumin 5.0 (3.5-5.1) g/dL Vitamin B12 892.0 (239-931) pg/mL Folate 5.7 (2.76->20) ng/mL TSH 4.580 (0.465-4.680) uIU/mL Urine Color Yellow (Yellow) Urine Appearance Clear (Clear) Urine pH 6.0 (5.0-9.0) Ur Specific [place] 1.006 (1.001-1.035) Urine Protein Negative (Negative) mg/dL Urine Glucose (UA) Negative (Negative) mg/dL Urine Ketones Negative (Negative) mg/dL Ur Blood (Man) Negative (Negative) Urine Nitrate Negative (Negative) Urine Bilirubin Negative (Negative) Urine Urobilinogen 0.2 (<2.0) mg/dL Leukocyte Esterase Rfl Negative (Negative) GOLDIE/UL Salicylates < 1.0 L (2-20) mg/dL Urine Opiates Screen Negative (Negative) Urine Methadone Screen Negative (Negative) Acetaminophen < 10 L (10-30) ug/mL Ur Barbiturates Screen Negative (Negative) Ur Phencyclidine Scrn Negative (Negative) Ur Amphetamine Screen Negative (Negative) U Benzodiazepines Scrn Negative (Negative) Urine Cocaine Screen Negative (Negative) U Cannabinoids Screen Negative (Negative) Ethyl Alcohol 455 H* (<10) mg/dL Influenza A (RT-PCR) Negative (Negative) Influenza B (RT-PCR) Negative (Negative) RSV (RT-PCR) Negative (Negative) SARS-CoV-2 RNA (RT-PCR) Negative (Negative) Imaging Data Attestation: I personally reviewed and interpreted this imaging study as follows: My impression: No acute abnormalities noted on patient's chest x-ray. Critical Care Time Critical Care Time Critical Care Time: Yes Total Critical Care Time: 55 Discharge Plan Discharge Clinical Impression: Alcohol abuse, Anxiety, Dehydration, mild Patient Disposition: Home Condition: Guarded Prognosis Instructions: Antibiotic Form, Alcohol Withdrawal (ED) Additional Instructions: Please return to the ER with any worsening symptoms. Follow-up with primary care provider as soon as possible for further evaluation and treatment. Take all medications as prescribed, including regularly scheduled medications. If your symptoms of withdrawal start to worsen, please take a Xanax at home. If that does not help then please return to the ER. Remember to drink lots of water. Patient Language: Persian Prescriptions: New ondansetron 8 mg tablet,disintegrating 8 mg PO Q8H PRN (Reason: nausea and vomiting) Qty: 30 0RF No Action levothyroxine 125 mcg tablet 125 mcg PO DAILY Qty: 90 1RF alprazolam 0.5 mg tablet 0.5 mg PO BID PRN (Reason: anxiety) Qty: 30 0RF Follow-up/Referrals: Lovely Story MD [Primary Care Provider, [facility]] Time of Disposition: 01:39
--- OUTSIDE RECORDS SUMMARY | 2024-11-02 19:12 | XMS_ITS | Clinical Summary ---
Author Organization [facility] Address [address] [place] [id number] Care Team Providers Care Cigar Packing Examiner Name Role Phone Scarlet Story MD Primary Care Provider Allergies No known active allergies Medications ALPRAZolam (XANAX) 0.5 MG tablet Take 0.5 mg by mouth nightly as needed for Sleep. Active ondansetron (ZOFRAN-ODT) 4 MG disintegrating tablet Take 1 tablet (4 mg total) by mouth every 8 (eight) hours as needed for Nausea. 20 tablet 3 Active Social History Tobacco Use Types Packs/Day Years Used Date Smoking Tobacco: Never Assessed Sex and Gender Information Value Date Recorded Sex Assigned at Not on file Legal Sex Male 9:24 AM BEFORE SCHOOL BABYSITTER Gender Identity Not on file Sexual Orientation Not on file Last Filed Vital Signs Vital Sign Reading Time Taken Comments Blood Pressure 137/87 03/15/2022 2:13 PM BEFORE SCHOOL BABYSITTER Pulse 94 03/15/2022 2:13 PM BEFORE SCHOOL BABYSITTER Temperature 36.9 C (98.5 F) 03/15/2022 9:27 AM BEFORE SCHOOL BABYSITTER Respiratory Rate 16 03/15/2022 2:13 PM BEFORE SCHOOL BABYSITTER Oxygen Saturation 99% 03/15/2022 2:13 PM BEFORE SCHOOL BABYSITTER Inhaled Oxygen Concentration - - Weight 100.5 kg (221 lb 9 oz) 03/15/2022 9:27 AM BEFORE SCHOOL BABYSITTER Height 195.6 cm (6' 5) 03/15/2022 9:27 AM BEFORE SCHOOL BABYSITTER Body Mass Index 26.27 03/15/2022 9:27 AM BEFORE SCHOOL BABYSITTER Plan of Treatment Health Maintenance Due Date Last Done Comments Annual Physical 1989 DTaP, Tdap and Td Vaccines (6 - Tdap) 09/25/2002 09/24/2002, 05/06/1991, 07/12/1988, Additional history exists Hepatitis C 2004 HPV Vaccines (1 - 3-dose SCDM series) 2013 COVID-19 Vaccine ( - season) 2024 01/26/2021, 05/15/2020, 04/24/2020 Hepatitis B Vaccines Completed 06/19/1996, 01/24/1996, 12/26/1995 Meningococcal B Vaccine Aged Out No l onger eligible based on patient's age to complete this topic Meningococcal Vaccine Aged Out No jeremi larisa eligible based on patient's age to complete this topic Pneumococcal Vaccine: Pediatrics (0 to 5 Years) and At-Risk Patients (6 to 49 Years) Aged Out No longer eligible based on patient's age to complete this topic RSV Immunizations Under 20 Months Aged Out No longer eligible based on patient's age to complete this topic Insurance [facility] [place] [address] Care Teams Cigar Packing Examiner Relationship Specialty Start Date End Date Scarlet Story MD [address] [place], [place] [id number] PCP - General FAMILY PRACTICE 03/15/22
--- OUTSIDE RECORDS SUMMARY | 2024-11-02 19:12 | XMS_ITS | Clinical Summary ---
Author Organization [facility] Address [address] [place] [id number] Care Team Providers Care Bobbin Stripper Name Role Phone Unavailable Primary Care Provider Unavailabl e Allergies No known active allergies Medications ALPRAZolam (XANAX) 0.5 mg tablet Take 0.5 mg by mouth 1 time daily as needed. Active ondansetron (ZOFRAN ODT) 4 mg Tablet, Rapid Dissolve Take 4 mg by mouth every 8 hours as needed. 03/15/2022 Active levothyroxine 125 mcg tablet Take 125 mcg by mouth daily in the morning. Active Active Problems No known active problems Social History Tobacco Use Types Packs/Day Years Used Date Smoking Tobacco: Some Days Cigarettes Smokeless Tobacco: Never Tobacco Cessation:Ready to Q uit: Not Asked; Counseling Given: Not Answered Sex and Gender Information Value Date Recorded Sex Assigned at Not on file Legal Sex Male 9:24 AM OUTSIDE COLLECTOR Gender Identity Not on file Sexual Orientation Not on file Last Filed Vital Signs Vital Sign Reading Time Taken Comments Blood Pressure 122/90 02/08/2023 10:36 AM OUTSIDE COLLECTOR Pulse 81 02/08/2023 10:36 AM OUTSIDE COLLECTOR Temperature 36.6 C (97.9 F) 02/08/2023 10:36 AM OUTSIDE COLLECTOR Respiratory Rate - - Oxygen Saturation 97% 02/08/2023 10:36 AM OUTSIDE COLLECTOR Inhaled Oxygen Concentration - - Weight 107.3 kg (236 lb 8 oz) 02/08/2023 10:36 A M OUTSIDE COLLECTOR Height 195.6 cm (6' 5) 02/08/2023 10:36 AM OUTSIDE COLLECTOR Body Mass Index 28.04 02/08/2023 10:36 AM OUTSIDE COLLECTOR Plan of Treatment Health Maintenance Due Date Last Done Comments DTAP/TDAP/TD VACCINES (1 - Tdap) 2005 HEPATITIS B VACCINES (1 of 3 - 19+ 3-dose series) 04/2005 HPV VACCINES (1 - 3-dose SCDM series) 2013 INFLUENZA VACCINE (#1) 2024 Insurance [facility] [employer] CHOICE
[2024-11-02 19:51] LABS: Hematocrit 50.2 % (42.0-52.0); Hemoglobin 17.6 g/dL (14.0-18.0); Immature Granulocyte Percent A 0.4 % (0-0.5); Lymphocytes Absolute Auto 2.34 K/mm3 (0.9-3.2); Mean Corpuscular HGB Conc 35.1 g/dl (32-36); Mean Corpuscular Hemoglobin 32.7 pg (26-34); Mean Corpuscular Volume 93.1 fl (80-100); Nucleated Red Blood Cells Absolute Auto 0.000 K/mm3 (0.0-0.012); Nucleated Red Blood Cells Perc 0.0 % (0.0-0.2); Platelet Count Result 206 k/mm3 (150-375); Red Blood Count 5.39 M/mm3 (4.6-6.20); White Blood Count 11.4 K/mm3 (4.5-10.0)
[2024-11-02 19:52] LABS: Add Urine Microscopic? NO; Appearance Urine Clear (Clear); Glucose Urine UA Negative (Negative); Leukocyte Esterase Ur Negative LEU/UL (Negative); Nitrate Urine Negative (Negative); Specific Grav Ur 1.006 (1.001-1.035)
[2024-11-02] MEDS: SODIUM CHLORIDE 0.9% IV 1,000 ML 999 ML IV CONT ×2 (19:58→21:59)
[2024-11-02] MEDS: THIAMINE HCL 200 MG/2 ML VIAL 100 MG IV PUSH (19:59)
[2024-11-02] MEDS: FOLIC ACID 1 MG/0.2 ML INJ IV PUSH (19:59)
[2024-11-02 20:04] LABS: Alanine Aminotransferase 56 U/L (6-50); Albumin Level 5.0 g/dL (3.5-5.1); Alkaline Phosphatase 115 U/L (38-126); Anion Gap 18 mmol/L (4-12); Aspartate Amino Transferase 85 U/L (17-59); Bilirubin,Total 0.9 mg/dL (0.2-1.3); Blood Urea Nitrogen 10 mg/dL (9-20); Calcium 8.5 mg/dL (8.4-10.2); Carbon Dioxide 24 mmol/L (22-30); Chloride 98 mmol/L (98-107); Estimated Glomerular Filt Rate > 60; Glucose 113 mg/dL (65-110); Potassium 4.2 mmol/L (3.4-5.0); Sodium 140 mmol/L (137-145); Total Protein 8.5 g/dL (6.3-8.2)
[2024-11-02 20:08] LABS: Cannabinoid Screen Urine Negative (Negative)
[2024-11-02 20:25] LABS: Acetaminophen < 10 ug/mL (10-30); Salicylate < 1.0 mg/dL (2-20)
[2024-11-02 20:27] LABS: Influenza A QL RT-PCR Negative (Negative); Influenza B QL RT-PCR Negative (Negative); RSV RNA, RT-PCR Negative (Negative); SARS-CoV-2 RNA PCR Negative (Negative)
[2024-11-02 20:35] LABS: Thyroid Stimulating Hormone 4.580 uIU/mL (0.465-4.680)
[2024-11-02 21:07] LABS: Vitamin B12 892.0 pg/mL (239-931)
[2024-11-02] MEDS: ONDANSETRON INJ 4 MG/2 ML VIAL IV PUSH (21:35)
[2024-11-03] VITALS (14 sets, daily range): BP systolic 126–154; BP diastolic 83–97; PULSE 100–125; RESP 12–27; O2SAT 90–95
[2024-11-03] MEDS: SODIUM CHLORIDE 0.9% IV 1,000 ML 999 ML IV CONT (00:07)
[2024-11-03] MEDS: ONDANSETRON INJ 4 MG/2 ML VIAL IV PUSH (00:09)
[2024-11-03] MEDS: ONDANSETRON HCL ODT 4 MG TABLET PO (01:44)
[2024-11-03] MEDS: LORazepam (*CRX) 1 MG TABLET PO (01:45)
[2024-11-03] MEDS: METOCLOPRAMIDE HCL INJ 10 MG/2 ML VIAL IV PUSH (01:46)
== END 2024-11-03 02:07 | disposition home or self-care (01) ==
PROVIDERS: Emergency Provider Registered Nurse; PCP Family Medicine
DX: F10.129 Alcohol abuse with intoxication, unspecified (principal); Y90.8 Blood alcohol level of 240 mg/100 ml or more; F41.9 Anxiety disorder, unspecified; E86.0 Dehydration; Z20.822 Contact with and (suspected) exposure to COVID-19; F17.210 Nicotine dependence, cigarettes, uncomplicated; E03.9 Hypothyroidism, unspecified; K76.0 Fatty (change of) liver, not elsewhere classified; K21.9 Gastro-esophageal reflux disease without esophagitis; R00.0 Tachycardia, unspecified
CPT/HCPCS: 36415; 71045; 80053; 80143; 80179; 80307; 81003; 82077; 82607; 82746; 82948; 84443; 85025; 87637; 93005; 96361; 96374; 96375; 96376; 99284; A9270; J1200; J2405; J2765; J3411; J7030

== ENCOUNTER 2024-11-06 18:23 | Emergency (ER) | payer BC, SELFPAY ==
[2024-11-06 18:28] VITALS: BP 145/92; PULSE 98; RESP 18; TEMP 36.3; O2SAT 100
--- OUTSIDE RECORDS SUMMARY | 2024-11-06 18:28 | XMS_ITS | Clinical Summary ---
Author Organization [facility] Address [address] [place] [id number] Care Team Providers Care Ambulatory Care Coordinator Name Role Phone Scarlet Story MD Primary [...] on file Legal Sex Male 9:24 AM SURVEILLANCE ANALYST Gender Identity Not on file Sexual Orientation Not on file Last Filed Vital Signs Vital Sign Reading Time Taken Comments Blood Pressure 137/87 03/15/2022 2:13 PM SURVEILLANCE ANALYST Pulse 94 03/15/2022 2:13 PM SURVEILLANCE ANALYST Temperature 36.9 C (98.5 F) 03/15/2022 9:27 AM SURVEILLANCE ANALYST Respiratory Rate 16 03/15/2022 2:13 PM SURVEILLANCE ANALYST Oxygen Saturation 99% 03/15/2022 2:13 PM SURVEILLANCE ANALYST Inhaled Oxygen Concentration - - Weight 100.5 kg (221 lb 9 oz) 03/15/2022 9:27 AM SURVEILLANCE ANALYST Height 195.6 cm (6' 5) 03/15/2022 9:27 AM SURVEILLANCE ANALYST Body Mass Index 26.27 03/15/2022 9:27 AM SURVEILLANCE ANALYST Plan of Treatment Health Maintenance Due Date Last Done Comments Annual Physical 1989 DTaP, Tdap and Td Vaccines (6 - Tdap) 09/25/2002 09/24/2002, 05/06/1991, 07/12/1988, Additional history exists Hepatitis C 2004 HPV Vaccines (1 - 3-dose SCDM series) 2013 COVID-19 Vaccine ( season) 2024 01/26/2021, 05/15/2020, 04/24/2020 Influenza Adult (#1) 2024 12/19/2017 Hepatitis B Vaccines Completed 06/19/1996, 01/24/1996, 12/26/1995 [...] patient's age to complete this topic Insurance [facility] [place] [address] Care Teams Ambulatory Care Coordinator Relationship Specialty Start Date End Date Scarlet Story MD [address] [facility] [address] [place], [place] [phone] PCP - General FAMILY PRACTICE 03/15/22
--- OUTSIDE RECORDS SUMMARY | 2024-11-06 18:28 | XMS_ITS | Clinical Summary ---
Author Organization [facility] Address [address] [place] [phone] Care Team Providers Care Shoe Worker Name Role Phone Unavailable Primary Care Provider [...] on file Legal Sex Male 9:24 AM IMCU NURSE Gender Identity Not on file Sexual Orientation Not on file Last Filed Vital Signs Vital Sign Reading Time Taken Comments Blood Pressure 122/90 02/08/2023 10:36 AM IMCU NURSE Pulse 81 02/08/2023 10:36 AM IMCU NURSE Temperature 36.6 C (97.9 F) 02/08/2023 10:36 AM IMCU NURSE Respiratory Rate - - Oxygen Saturation 97% 02/08/2023 10:36 AM IMCU NURSE Inhaled Oxygen Concentration - - Weight 107.3 kg (236 lb 8 oz) 02/08/2023 10:36 A M IMCU NURSE Height 195.6 cm (6' 5) 02/08/2023 10:36 AM IMCU NURSE Body Mass Index 28.04 02/08/2023 10:36 AM IMCU NURSE Plan of Treatment Health Maintenance Due Date Last Done Comments DTAP/TDAP/TD VACCINES (1 - Tdap) 2005 HEPATITIS B VACCINES (1 of 3 - 19+ 3-dose series) 04/2005 HPV VACCINES (1 - 3-dose SCDM series) 2013 INFLUENZA VACCINE (#1) 2024 Insurance [facility] [employer] CHOICE
--- NOTE | 2024-11-06 19:04 | ED_ITS ---
HPI - Head Injury General Chief complaint: Wound/Laceration Stated complaint: Fall Time Seen by Provider: 11/06/24 18:45 Source: patient and RN notes reviewed Mode of arrival: ambulatory Limitations: no limitations History of Present Illness HPI Narrative: 39-year-old male presents Express Care complaining of left-sided headache and head injury approximately 5 days ago. Patient said he was seen in the ER 5 days ago for an alcohol intoxication. Patient did not disclose that he fell when he went to the ER, he stated he did not remember he fell hit his head. Patient said his told me it is head. Patient is unsure if he hit his head off the sliding glass door at home or if he has had off a dresser rolling out of bed. Patient says he has a history of alcohol abuse as not drink for approximally 5 days now. Patient reports he was drinking heavily last 3-4 weeks drinking almost a 5th of vodka a day. Patient reports some mild triggering and anxiety. Patient reports headache gets worse throughout the day occurs on the left side of his head becomes very intense at night and then subsides with the morning. Patient also reports having difficulty concentrating and in ?brain fog?. Patient denies any vision changes, blurry vision, nausea, vomiting, dizziness, loss of consciousness, focal weakness, slurred speech, vomiting blood, or any other symptoms. Related Data Allergies Allergy/AdvReac Type Severity Reaction Status Date / Time No Known Allergies Allergy Verified 11/06/24 18:31 Review of Systems Review of Systems: CONSTITUTIONAL: Denies fever, chills, or sweats. EYES: Denies visual changes, redness, or discharge. ENT: Denies rhinorrhea, congestion, sore throat, or otalgia. CARDIOVASCULAR: Denies chest pain, palpitations, dizziness, lightheadedness or edema. RESPIRATORY: Denies cough or dyspnea. GASTROINTESTINAL: Denies abdominal pain, nausea, vomiting, black tarry stools, vomiting blood, or diarrhea. GENITOURINARY: Denies dysuria or hematuria. SKIN: Denies rash or itching. MUSCULOSKELETAL: Denies back pain, joint pain, or myalgia. NEUROLOGIC: Positive for headaches and difficulty concentrating. Negative for loss of consciousness, seizures, focal weakness, slurred speech, facial droop, Numbness, or weakness. PSYCHIATRIC: Denies anxiety or depression. All other systems reviewed are negative, except as documented in HPI. [facility] Past Medical History Medical History Hypothyroidism (acquired) Hepatic steatosis Elevated liver enzymes GERD (gastroesophageal reflux disease) Diarrhea Anxiety Surgical History Surgical History History of wisdom tooth extraction Social History Social History Smoking status: Current some day smoker Tobacco type: cigarettes Second hand tobacco smoke exposure: Yes Alcohol intake: current Drinks per week: 15 Alcohol use details: As of today 13 days sober Substance use: current Substance use type: unknown Other substance usage details: occassionally Lack of Transportation: No Lack of Food: Never True Current Housing: I Have Housing Concerned About Future Housing: No Difficulty Paying Gas/Electric Bills: No Difficulty Paying for Meds: No Currently Unemployed: No Education: Bachelor's Degree Difficulty w/ Childcare or Family Care: No Living arrangements: with family Occupation/Education: occupation Gender identity (if verbalized by the patient): Male Spiritual care concerns: No Agree to blood products: Yes Comments At the time of my signature, I reviewed and agree with the nursing past medical, surgical, social, and family history. There is no relevant family history pertinent to the patient complaint. Exam Narrative: GENERAL: This is a well-nourished, well-developed adult, in no apparent distress. They are non ill-appearing, nontoxic appearing. HEAD: normocephalic, atraumatic. No raccoon eyes or Bauer signs. EYES: Sclera clear/white. Conjunctiva normal. Vision is grossly intact. Extraocular movements intact. Pupils PERRLA EARS: External ears normal, auditory canals clear and without drainage, TMs normal without perforation. Hearing grossly intact. No hemotympanum bilaterally. NOSE: External nose normal with no obvious nasal discharge, nasal turbinates without redness, no rhinorrhea or nasal discharge. No septal hematoma. THROAT: Mucous membranes moist, posterior pharynx clear, without erythema or swe lling. Uvula midline. OROPHARYNX: No missing teeth. Teeth intact. No fracture teeth. No gingivitis. No gross tooth decay. Tongue midline. NECK: Neck supple, non-tender without lymphadenopathy, masses or thyromegaly. The cervical point tenderness, crepitus, or step-offs. CARDIOVASCULAR: Regular rate and rhythm without murmurs, gallops, or rubs. RESPIRATORY: Clear to auscultation. Breath sounds equal bilaterally. No wheezes, rales, or rhonchi. SKIN: warm, Dry, intact with no suspicious lesions or rash, good texture and turgor. NEURO: awake, alert, and oriented to person, place and time. There were no obvious focal neurologic abnormalities. Cranial nerve 2-12 grossly intact. EXTREMITIES: No joint tenderness, effusion, or edema noted. BACK: Nontender without deformity. No CVA tenderness. No thoracic or lumbar point tenderness, crepitus, or step-offs. Course Course Emergency Course: Portions of this record may have been created with voice recognition software Level of Care: Express Care Visit Vital Signs Vital signs: Vital Signs Temperature 97.3 F L 11/06/24 18:28 Pulse Rate 98 11/06/24 18:28 Respiratory Rate 18 11/06/24 18:28 Blood Pressure 145/92 H 11/06/24 18:28 Pulse Oximetry 100 11/06/24 18:28 Oxygen Delivery Room Air 11/06/24 18:28 Temperature 97.3 F L 11/06/24 18:28 Pulse Rate 98 11/06/24 18:28 Respiratory Rate 18 11/06/24 18:28 Blood Pressure 145/92 H 11/06/24 18:28 Pulse Oximetry 100 11/06/24 18:28 Oxygen Delivery Room Air 11/06/24 18:28 Reviewed Transfer Transfered to: [facility] Transportation: Other (Private vehicle via spouse) Transfer rationale: , patient requires higher level care, advanced imaging, head CT, history of alcohol intoxication Accepting physician: Yani Lewis PA-C MDM - Head Injury MDM Narrative Medical decision making narrative: Patient continues to have headaches since he has fell. Patient reports brain fog, difficulty concentrating otherwise patient denies any other symptoms. Patient likely also going through mild alcohol withdrawal. Patient obtain head CT imaging when he was in the ER, he did not disclose that he had a fall or injury. Patient would benefit from a head CT. Given patient's symptoms, it is recommend the patient seek a higher level care and proceed immediately to the emergency department. Patient is agreeable to go to [facility]. Called over to [facility] and spoke with Yani Lewis PA-C who is aware this patient accepted the patient for transfer. Patient advised to remain NPO and proceed immediately to the ER. Patient has also taken via private vehicle. Differential Diagnosis Differential diagnosis: Likely concussion without loss of consciousness, closed head injury, concussion with loss of consciousness and other (Intracranial hemor rhage, CVA, alcohol withdrawal) Critical Care Time Critical Care Time Critical Care Time: No Discharge Plan Discharge Clinical Impression: Head injury Qualifiers: Encounter type: initial encounter Qualified Code(s): S09.90XA - Unspecified injury of head, initial encounter Patient Disposition: Acute Care Hospital Condition: Stable Patient Language: [place] Prescriptions: No Action levothyroxine 125 mcg tablet 125 mcg PO DAILY Qty: 90 1RF ondansetron 8 mg tablet,disintegrating 8 mg PO Q8H PRN (Reason: nausea and vomiting) Qty: 30 0RF alprazolam 0.5 mg tablet 0.5 mg PO BID PRN (Reason: anxiety) Qty: 30 0RF Follow-up/Referrals: Lovely Story MD [Primary Care Provider, [facility]] Time of Disposition: 19:03
== END 2024-11-06 19:07 | disposition short-term general hospital (02) ==
PROVIDERS: PCP Family Medicine
DX: S09.90XA Unspecified injury of head, initial encounter (principal); W19.XXXA Unspecified fall, initial encounter; E03.9 Hypothyroidism, unspecified; K76.0 Fatty (change of) liver, not elsewhere classified; K21.9 Gastro-esophageal reflux disease without esophagitis; F41.9 Anxiety disorder, unspecified; F17.210 Nicotine dependence, cigarettes, uncomplicated
CPT/HCPCS: 99212; G0463

== ENCOUNTER 2024-11-06 19:17 | Emergency (ER) | payer BC, SELFPAY ==
--- NOTE | ~2024-11-06 | CT_ITS ---
CT HEAD NON-CONTRAST Clinical History: head injury Comparison: None Technique: Unenhanced axial images skull base to vertex Coronal, sagittal reformats CT images acquired with automatic exposure control for dose reduction DLP: 605 mGy-cm Findings: Sulci, ventricles: Unremarkable. No intracerebral hemorrhage. No evidence acute territorial infarct. No mass effect, midline shift. Bony calvarium intact. Visualized paranasal sinuses: Clear. Mastoid air cells: Clear. IMPRESSION: 1. No acute intracranial findings. Reviewed, dictated and finalized at location R.
--- OUTSIDE RECORDS SUMMARY | 2024-11-06 19:19 | XMS_ITS | Clinical Summary ---
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 Gender Identity Not on file Sexual Orientation Not on file Last Filed Vital Signs Vital Sign Reading Time Taken Comments Blood Pressure 122/90 02/08/2023 10:36 AM FINANCE LECTURER Pulse 81 02/08/2023 10:36 AM FINANCE LECTURER Temperature 36.6 C (97.9 F) 02/08/2023 10:36 AM FINANCE LECTURER Respiratory Rate - - Oxygen Saturation 97% 02/08/2023 10:36 AM FINANCE LECTURER Inhaled Oxygen Concentration - - Weight 107.3 kg (236 lb 8 oz) 02/08/2023 10:36 A M FINANCE LECTURER Height 195.6 cm (6' 5) 02/08/2023 10:36 AM FINANCE LECTURER Body Mass Index 28.04 02/08/2023 10:36 AM FINANCE LECTURER Plan of Treatment Health Maintenance Due Date Last Done Comments DTAP/TDAP/TD VACCINES (1 - Tdap) 2005 HEPATITIS B VACCINES (1 of 3 - 19+ 3-dose series) 04/2005 HPV VACCINES (1 - 3-dose SCDM series) 2013 INFLUENZA VACCINE (#1) 2024 Insurance [facility] [employer] CHO[facility]
--- OUTSIDE RECORDS SUMMARY | 2024-11-06 19:19 | XMS_ITS | Clinical Summary ---
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 Gender Identity Not on file Sexual Orientation Not on file Last Filed Vital Signs Vital Sign Reading Time Taken Comments Blood Pressure 137/87 03/15/2022 2:13 PM CYBER SECURITY SYSTEMS ENGINEER Pulse 94 03/15/2022 2:13 PM CYBER SECURITY SYSTEMS ENGINEER Temperature 36.9 C (98.5 F) 03/15/2022 9:27 AM CYBER SECURITY SYSTEMS ENGINEER Respiratory Rate 16 03/15/2022 2:13 PM CYBER SECURITY SYSTEMS ENGINEER Oxygen Saturation 99% 03/15/2022 2:13 PM CYBER SECURITY SYSTEMS ENGINEER Inhaled Oxygen Concentration - - Weight 100.5 kg (221 lb 9 oz) 03/15/2022 9:27 AM CYBER SECURITY SYSTEMS ENGINEER Height 195.6 cm (6' 5) 03/15/2022 9:27 AM CYBER SECURITY SYSTEMS ENGINEER Body Mass Index 26.27 03/15/2022 9:27 AM CYBER SECURITY SYSTEMS ENGINEER Plan of Treatment Health Maintenance Due Date [...] patient's age to complete this topic Insurance [facility] [place] [id number] Care Teams Special Education Professor Relationship Specialty Start Date End Date Scarlet Story MD [id number] [facility] [place] [address] [place], [place] [id number] PCP - General FAMILY PRACTICE 03/15/22
[2024-11-06 19:55] VITALS: BP 151/84; PULSE 104; RESP 16; TEMP 36.3; O2SAT 98
[2024-11-06 21:26] VITALS: BP 128/94; PULSE 90; RESP 17; O2SAT 97
--- NOTE | 2024-11-06 21:35 | ED_ITS ---
HPI - Head Injury General Chief complaint: Head Injury Stated complaint: Fell hit head 5days ago-headache/brain fog still Time Seen by Provider: 11/06/24 21:30 Source: patient Mode of arrival: ambulatory Limitations: no limitations History of Present Illness HPI Narrative: This is a 39 year old male that presents to the ER after a head injury 4 days ago. Reports he had been drinking and fell and hit his head. He was seen in the ER here for intoxication, but did not tell the provider he had fallen. Reports since he has had headaches, brain fog. Denies vision changes, vomiting, numbness, weakness. Related Data Allergies Allergy/AdvReac Type Severity Reaction Status Date / Time No Known Allergies Allergy Verified 11/06/24 18:31 Review of Systems Review of Systems: All systems reviewed & are unremarkable except as noted in HPI and below PMFSH Past Medical History Medical History Hypothyroidism (acquired) Hepatic steatosis Elevated liver enzymes GERD (gastroesophageal reflux disease) Diarrhea Anxiety Surgical History Surgical History History of wisdom tooth extraction Social History Social History Smoking status: Current some day smoker Tobacco type: cigarettes Second hand tobacco smoke exposure: Yes Alcohol intake: current Drinks per week: 15 Alcohol use details: As of today 13 days sober Substance use: current Substance use type: unknown Other substance usage details: occassionally Lack of Transportation: No Lack of Food: Never True Current Housing: I Have Housing Concerned About Future Housing: No Difficulty Paying Gas/Electric Bills: No Difficulty Paying for Meds: No Currently Unemployed: No Education: Bachelor's Degree Difficulty w/ Childcare or Family Care: No Living arrangements: with family Occupation/Education: occupation Gender identity (if verbalized by the patient): Male Spiritual care concerns: No Agree to blood products: Yes Exam Narrative: GENERAL: Well-appearing, well-nourished, and in no acute distress. HEAD: Normocephalic, atraumatic. EYES: PERRLA and EOMI. ENT: Nares clear, no rhinorrhea or epistaxis. Mucous membranes moist. Oropharynx without tonsillar hypertrophy exudate or other lesions. Bilateral TMs pearly hidalgo non-bulging NECK: Supple. No adenopathy or masses. CHEST: Clear to auscultation. No respiratory distress. No wheezes rales or rhonchi HEART: Regular rate and rhythm. No murmur heard. Normal peripheral pulses. EXTREMITIES: Normal range of motion. No edema. SKIN: Warm, dry, no rash. NEURO: No focal deficits. Alert and oriented x3. Cranial nerves 2-12 grossly intact PSYCH: Normal mood and affect Course Vital Signs Vital signs: Vital Signs Temperature 97.4 F L 11/06/24 19:55 Pulse Rate 104 H 11/06/24 19:55 Respiratory Rate 16 11/06/24 19:55 Blood Pressure 151/84 H 11/06/24 19:55 Pulse Oximetry 98 11/06/24 19:55 Oxygen Delivery Room Air 11/06/24 19:55 Temperature 97.4 F L 11/06/24 19:55 Pulse Rate 90 11/06/24 21:26 Respiratory Rate 17 11/06/24 21:26 Blood Pressure 128/94 H 11/06/24 21:26 Pulse Oximetry 97 11/06/24 21:26 Oxygen Delivery Room Air 11/06/24 19:55 MDM - Head Injury MDM Narrative Medical decision making narrative: Patient presents emergency department after a fall a couple of days prior to arrival with head injury. Reporting continued headaches. He is neurologically intact. CT brain without acute findings. Patient updated on his workup and agrees with plan of care. Instructed on further care of concussion. He is to follow up with primary provider. He was given warnings to return to the ER Differential Diagnosis Differential diagnosis: Likely concussion without loss of consciousness, closed head injury, postconcussion syndrome, subdural hematoma and concussion with loss of consciousness Imaging Data Radiologist's impression: CT brain: No acute intracranial abnormality Critical Care Time Critical Care Time Critical Care Time: No Discharge Plan Discharge Clinical Impression: Head injury Qualifiers: Encounter type: initial encounter Qualified Code(s): S09.90XA - Unspecified injury of head, initial encounter Patient Disposition: Home Condition: Stable Instructions: Concussion (ED) Additional Instructions: Return to the emergency department if you experience vision changes, vomiting, weakness, numbness, or any other symptoms that are concerning to you. Rest. Remain well hydrated. Over the counter pain medication as needed Follow up with primary care doctor Patient Language: Icelandic Prescriptions: No Action levothyroxine 125 mcg tablet 125 mcg PO DAILY Qty: 90 1RF ondansetron 8 mg tablet,disintegrating 8 mg PO Q8H PRN (Reason: nausea and vomiting) Qty: 30 0RF alprazolam 0.5 mg tablet 0.5 mg PO BID PRN (Reason: anxiety) Qty: 30 0RF Follow-up/Referrals: Lovely Story MD [Primary Care Provider, Family Practice]
== END 2024-11-06 23:00 | disposition home or self-care (01) ==
PROVIDERS: Emergency Provider Physician Assistant; PCP Family Medicine
DX: S09.90XA Unspecified injury of head, initial encounter (principal); E03.9 Hypothyroidism, unspecified; K21.9 Gastro-esophageal reflux disease without esophagitis; F41.9 Anxiety disorder, unspecified; F17.210 Nicotine dependence, cigarettes, uncomplicated; Z79.899 Other long term (current) drug therapy; W19.XXXA Unspecified fall, initial encounter
CPT/HCPCS: 70450; 99284

== ENCOUNTER 2024-12-20 12:01 | Outpatient (CLI) | payer BC, SELFPAY ==
[2024-12-20 12:31] LABS: Hematocrit 42.5 % (42.0-52.0); Hemoglobin 14.7 g/dL (14.0-18.0); Immature Granulocyte Percent A 0.2 % (0-0.5); Lymphocytes Absolute Auto 1.93 K/mm3 (0.9-3.2); Mean Corpuscular HGB Conc 34.6 g/dl (32-36); Mean Corpuscular Hemoglobin 32.4 pg (26-34); Mean Corpuscular Volume 93.6 fl (80-100); Nucleated Red Blood Cells Absolute Auto 0.000 K/mm3 (0.0-0.012); Nucleated Red Blood Cells Perc 0.0 % (0.0-0.2); Platelet Count Result 235 k/mm3 (150-375); Red Blood Count 4.54 M/mm3 (4.6-6.20); White Blood Count 6.2 K/mm3 (4.5-10.0)
[2024-12-20 12:49] LABS: Alanine Aminotransferase 24 U/L (6-50); Albumin Level 4.5 g/dL (3.5-5.1); Alkaline Phosphatase 56 U/L (38-126); Anion Gap 7 mmol/L (4-12); Aspartate Amino Transferase 33 U/L (17-59); Bilirubin,Total 1.1 mg/dL (0.2-1.3); Blood Urea Nitrogen 10 mg/dL (9-20); Calcium 9.3 mg/dL (8.4-10.2); Carbon Dioxide 26 mmol/L (22-30); Chloride 102 mmol/L (98-107); Cholesterol 174 mg/dL (0-200); Estimated Glomerular Filt Rate > 60; Glucose 78 mg/dL (65-110); HDL Direct 43 mg/dL; Potassium 4.4 mmol/L (3.4-5.0); Sodium 135 mmol/L (137-145); Total Protein 7.0 g/dL (6.3-8.2); Triglycerides 42 mg/dL (<150)
[2024-12-20 13:05] LABS: Free T4 Free Thyroxine 1.40 ng/dL (0.78-2.19)
[2024-12-20 13:21] LABS: Thyroid Stimulating Hormone 1.780 uIU/mL (0.465-4.680)
[2024-12-20 13:44] LABS: Vitamin B12 > 1000.0 pg/mL (239-931)
== END 2024-12-20 12:02 | disposition home or self-care (01) ==
LOC: ANHLAB 12:02
PROVIDERS: PCP Family Medicine; Visit Provider Family Medicine
DX: Z13.220 Encounter for screening for lipoid disorders (principal); E55.9 Vitamin D deficiency, unspecified; F41.9 Anxiety disorder, unspecified; F10.10 Alcohol abuse, uncomplicated; E03.9 Hypothyroidism, unspecified
CPT/HCPCS: 36415; 80053; 80061; 82306; 82607; 84439; 84443; 85025